=== PATIENT | female | born 1945 | race Caucasian/White ===

== ENCOUNTER 2017-01-13 10:45 | Emergency (ER) | payer OTHER, MEDICAID ==
[~2017-01-13] VITALS: Ht 165.1 cm; Wt 64.4 kg
[~2017-01-13 10:45] MED LIST: ATEN50TA PO; CYCL5TAB89 PO; LISI40TA PO; PREG75CA PO
[2017-01-13 11:58] LABS: Basophils # (auto) 0.1 uL; Basophils % (auto) 0.7 % (0.0-2.0); Eosinophils # (auto) 0.2 uL; Eosinophils % (auto) 2.2 % (0.0-7.0); Hematocrit 40.1 % (36.0-46.0); Hemoglobin 13.5 g/dL (12.2-16.2); Lymphocytes # (auto) 2.5 uL; Lymphocytes % (auto) 32.3 % (10.0-50.0); Mean Corpuscular Hemoglobin 28.4 pg (28.0-32.0); Mean Corpuscular Hgb Conc. 33.6 g/dL (32.0-36.0); Mean Corpuscular Volume 84.7 fL (80.0-100.0); Mean Platelet Volume 9.9 fL (7.4-10.4); Monocytes # (auto) 0.4 uL; Monocytes % (auto) 5.7 % (0.0-12.0); Neutrophils # (auto) 4.5 uL; Neutrophils % (auto) 59.1 % (37.0-80.0); Platelet Count (auto) 310 10^3/uL (140-450); White Blood Cell 7.6 10^3/uL (4.4-10.8)
[2017-01-13 12:44] LABS: Albumin 4.1 g/dL (3.4-5.0); BUN/Creatinine Ratio 17.8; Bilirubin, Total 0.6 mg/dL (0.2-1.0); Calcium 8.8 mg/dL (8.5-10.1); Potassium 3.7 mmol/L (3.5-5.1); Total Protein 7.7 g/dL (6.4-8.2)
[2017-01-13 13:43] VITALS: BP 119/69
== END 2017-01-13 13:46 | disposition home or self-care (01) ==
LOC: ER 10:45
DX: J20.9 Acute bronchitis, unspecified (principal); J45.909 Unspecified asthma, uncomplicated; K21.9 Gastro-esophageal reflux disease without esophagitis; I10 Essential (primary) hypertension; M79.7 Fibromyalgia; M19.90 Unspecified osteoarthritis, unspecified site
CPT/HCPCS: 36415; 71020; 80053; 85025

== ENCOUNTER 2017-02-19 10:10 | Emergency (ER) | payer OTHER, MEDICAID ==
[~2017-02-19] VITALS: Ht 167.6 cm; Wt 63.5 kg
[2017-02-19 10:15] VITALS: BP 138/87
== END 2017-02-19 11:14 | disposition home or self-care (01) ==
LOC: ER 10:12
DX: J20.9 Acute bronchitis, unspecified (principal); J45.909 Unspecified asthma, uncomplicated; K21.9 Gastro-esophageal reflux disease without esophagitis; E78.5 Hyperlipidemia, unspecified; I10 Essential (primary) hypertension; Z90.710 Acquired absence of both cervix and uterus

== ENCOUNTER 2017-05-17 08:55 | Emergency (ER) | payer OTHER, MEDICAID ==
[~2017-05-17] VITALS: Ht 165.1 cm; Wt 64.5 kg
[2017-05-17 09:14] VITALS: BP 159/84
== END 2017-05-17 09:54 | disposition home or self-care (01) ==
LOC: ER 08:55
DX: T78.40XA Allergy, unspecified, initial encounter (principal); J45.909 Unspecified asthma, uncomplicated; K21.9 Gastro-esophageal reflux disease without esophagitis; I10 Essential (primary) hypertension; Z90.710 Acquired absence of both cervix and uterus; Z91.041 Radiographic dye allergy status
CPT/HCPCS: 71020; 93005

== ENCOUNTER 2019-04-11 12:11 | Emergency (ER) | payer OTHER, MEDICAID ==
[~2019-04-11] VITALS: Ht 165.1 cm; Wt 65.3 kg
[2019-04-11] MEDS ORDERED: SODIUM CHLORIDE 0.9% 1,000 ML IVB ONE (12:36)
[2019-04-11] MEDS ORDERED: PANTOPRAZOLE 40 MG TAB PO ONE (12:45)
[2019-04-11 13:05] LABS: Basophils # (auto) 0.1 uL; Basophils % (auto) 0.8 % (0.0-2.0); Eosinophils # (auto) 0.1 uL; Eosinophils % (auto) 1.3 % (0.0-7.0); Hematocrit 38.9 % (36.0-46.0); Hemoglobin 13.1 g/dL (12.2-16.2); Lymphocytes # (auto) 2.2 uL; Lymphocytes % (auto) 31.7 % (10.0-50.0); Mean Corpuscular Hgb Conc. 33.7 g/dL (32.0-36.0); Monocytes # (auto) 0.5 uL; Monocytes % (auto) 6.7 % (0.0-12.0); Neutrophils # (auto) 4.1 uL; Neutrophils % (auto) 59.5 % (37.0-80.0); Nucleated Red Blood Cells % 0.1 %; Platelet Count (auto) 356 10^3/uL (140-450); Red Blood Cells 4.52 10^6/uL (4.0-5.20); Red Cell Distribution Width 13.4 % (11.8-14.3); White Blood Cell 6.8 10^3/uL (4.4-10.8)
[2019-04-11 13:27] LABS: Alanine Aminotransferase 35 U/L (13-56); Albumin 3.6 g/dL (3.4-5.0); Anion Gap 9 (5-15); Aspartate Aminotransferase 11 U/L (15-37); Blood Urea Nitrogen 17 mg/dL (7-18); Calcium 9.3 mg/dL (8.5-10.1); Carbon Dioxide 27 mmol/L (21-32); Chloride 108 mmol/L (98-107); GFR African American 70 mL/min; GFR Non-African American 58 mL/min; Glucose 131 mg/dL (74-106); Potassium 3.7 mmol/L (3.5-5.1); Sodium 144 mmol/L (136-145)
[2019-04-11 13:35] LABS: Alkaline Phosphatase 85 U/L (45-117); Bilirubin, Total 0.4 mg/dL (0.2-1.0); Lipase 3664 U/L (73-393); Total Protein 8.2 g/dL (6.4-8.2)
[2019-04-11 15:07] LABS: Urine Bacteria NONE SEEN /hpf (None Seen); Urine Blood Negative /uL (Negative); Urine Specific Gravity 1.026 (1.001-1.035); Urine WBC 4 /hpf (0 - 5)
[2019-04-11 15:20] VITALS: BP 139/66
== END 2019-04-11 15:51 | disposition home or self-care (01) ==
LOC: ER 12:13
DX: K29.70 Gastritis, unspecified, without bleeding (principal); K44.9 Diaphragmatic hernia without obstruction or gangrene; J45.909 Unspecified asthma, uncomplicated; K21.9 Gastro-esophageal reflux disease without esophagitis; E78.5 Hyperlipidemia, unspecified; I10 Essential (primary) hypertension; Z90.710 Acquired absence of both cervix and uterus; Z79.899 Other long term (current) drug therapy
CPT/HCPCS: 36415; 74176; 80053; 81001; 83690; 84484; 85025; 93005; 99284; J7030

== ENCOUNTER 2021-05-26 11:22 | Emergency (ER) | payer OTHER, MEDICARE ==
[~2021-05-26] VITALS: Ht 165.1 cm; Wt 64.9 kg
[~2021-05-26 11:22] MED LIST changes: -LISI40TA PO; +LISI40TA11 PO
[2021-05-26 13:34] VITALS: BP 141/78
[2021-05-26] MEDS ORDERED: ACETAMINOPHEN 325 MG TAB PO ONE (14:30)
== END 2021-05-26 15:29 | disposition home or self-care (01) ==
LOC: ER 11:22
DX: S46.911A Strain of unspecified muscle, fascia and tendon at shoulder and upper arm level, right arm, initial encounter (principal); S39.012A Strain of muscle, fascia and tendon of lower back, initial encounter; S29.012A Strain of muscle and tendon of back wall of thorax, initial encounter; I10 Essential (primary) hypertension; J45.909 Unspecified asthma, uncomplicated; K21.9 Gastro-esophageal reflux disease without esophagitis; E78.5 Hyperlipidemia, unspecified; G89.29 Other chronic pain; Z79.899 Other long term (current) drug therapy; Z88.8 Allergy status to other drugs, medicaments and biological substances; V43.52XA Car driver injured in collision with other type car in traffic accident, initial encounter; Y93.89 Activity, other specified; Y92.89 Other specified places as the place of occurrence of the external cause; Y99.8 Other external cause status
CPT/HCPCS: 72070; 72100; 73030

== ENCOUNTER 2024-09-25 10:17 | Emergency (ER) | payer OTHER, MEDICAID ==
[~2024-09-25] VITALS: Ht 165.1 cm; Wt 59.1 kg
[~2024-09-25 10:17] MED LIST changes: -LISI40TA11 PO; +LISI40TA16 PO
[2024-09-25 11:10] VITALS: BP 149/79; PULSE 118; RESP 20; TEMP 98.3; O2SAT 95
[2024-09-25 11:39] LABS: COVID19 ANTIGEN SOFIA FIA NEGATIVE (NEGATIVE); Rapid Influenza A Negative (Negative); Rapid Influenza B Negative (Negative)
[2024-09-25] MEDS ORDERED: ALBU108A5 IN (12:26)
[2024-09-25] MEDS ORDERED: PROM1SOL4 PO (12:26)
[2024-09-25] MEDS ORDERED: BENZ100C97 PO (12:26)
[2024-09-25] MEDS ORDERED: FEXO24TA10 PO (12:26)
--- NOTE | 2024-09-25 12:26 | ED.PDOC ---
SOB-HPI HPI Comments 79 year old F w/ no medical hx presents with URI symptoms x5 days Complains of a nonproductive cough, nasal congestion and a runny nose Denies fevers chills night sweats unintentional weight loss Denies persistent chest pain, shortness of breath, leg swelling Denies history of asthma nor any breathing conditions Denies history of pneumonia Denies recent international travel Chief Complaint: Flu like Time Seen by MD: 10:40 Primary Care Provider: [facility] Reviewed notes: Nurses Notes, Medications, Allergies Information Source: Patient Mode of Arrival: Ambulatory Past Medical History PAST MEDICAL HISTORY: Asthma, GERD, High Lipids, HTN Surgical History: Hysterectomy A&P TECHNICIAN History: No Pertinent A&P TECHNICIAN History Family History Family History: Unobtainable Social History Smoker: Non-Smoker Alcohol: Denies ETOH Use Drugs: Denies Drug Use Lives In: Home All Other Systems: Reviewed and Negative (Per HPI) Physical Exam General Appearance: No Apparent Distress, Normal HEENT: Normal ENT Inspection, Pharynx Normal, TMs Normal Neck: Full Range of Motion, Non-Tender, Normal, Normal Inspection Respiratory: Chest Non-Tender, Lungs Clear, No Accessory Muscle Use, No Respiratory Distress, Normal Breath Sounds Cardiovascular: No Edema, No JVD, No Murmur, No Gallop, Normal Peripheral Pulses, Regular Rate/Rhythm Breast Exam: Deferred Gastrointestinal: No Organomegaly, Non Tender, No Pulsatile Mass, Normal Bowel Sounds, Soft Genitalia: Deferred Pelvic: Deferred Rectal: Deferred Extremities: No calf tenderness, Normal capillary refill, Normal inspection, Normal range of motion, Non-tender, No pedal edema Musculoskeletal : Apperance: Normal Neurologic: Alert, No Motor Deficits, Normal Affect, Normal Mood, No Sensory Deficits Cerebellar Function: Normal Reflexes: Normal Skin: Dry, Normal Color, Warm Lymphatic: No Adenopathy Was a procedure done? Was a procedure done?: No Differential Dx Differential Diagnosis: Bronchitis, URI X-Ray, Labs, Meds, VS Vital Signs Date Time Temp Pulse Resp B/P (MAP) Pulse Ox O2 Delivery O2 Flow Rate FiO2 09/25/24 11:10 118 20 95 Room Air 09/25/24 11:10 98.3 118 20 149/79 (102) 95 98.3 09/25/24 10:28 98.3 118 20 149/79 (102) 95 Lab Test 1/27/25 10:35 Range/Units Influenza Type A Antigen Negative Negative Influenza Type B Antigen Negative Negative SARS-CoV-2 Antigen (Rapid) Negative NEGATIVE X-Ray, Labs, Meds, VS Comment On presentation, the patient is afebrile and has stable vital signs. The patient is overall well-appearing nontoxic on exam. On physical exam, respirations even and unlabored, clear to auscultation bilaterally. Oxygen stable on room air. Did not have any focal lung findings and therefore chest x-ray was not indicated during this exam Low suspicion of strep pharyngitis given physical exam findings and patient's presenting symptoms No signs of meningismus on exam Overall, the patient is well hydrated and nontoxic. Plan for symptomatic control for fever and pain as needed. The patient was able to tolerate p.o. intake in the ED. at this time, patient is safe for discharge home. The exam findings and plan discussed. We will discharge home with PCP follow up and strict return precautions. Discussed that cough can linger up to 6 weeks after viral URI Supportive care and return precautions discussed Counseled viral infection and explained that antibiotics would not be helpful in resolving the illness sooner. Recommended vitamin C, rest, handwashing, and symptomatic care. Expect 2-week course with possibly of cough lingering up to 6 weeks. Nonpharmacological remedies for fluids has been recommended as well Time of 1ST Reevaluation: 12:15 Reevaluation 1ST: Improved Patient Education/Counseling: Diagnosis, Treatment Family Education/Counseling: Diagnosis, Treatment Departure 1 Departure Time of Disposition: 12:24 Impression: Primary Impression: Viral syndrome Disposition: HOME / SELF CARE / HOMELESS Condition: Stable Additional Instructions: Discharge Note: Drink plenty of fluids. Follow up with your primary Dr. If your condition becomes worse call and follow up with your primary Dr. for instructions or return to the ER if needed. Thank you for visiting [facility]. e-Prescriptions Fexofenadine-Pseudoephedrine (ARSALAN-D 24 HOUR ALLERGY) 24 Hour Tab 1 TAB PO DAILY for 30 Days, #30 TAB 0 Refills Prov: MARTINEZ MEDRANO OPERATIONS/DISPATCH 09/25/24 Albuterol Sulfate (Albuterol Sulfate Hfa) 108 Mcg/Act Aer 108 MCG IN Q6HP PRN for 30 Days, #1 AER 0 Refills Prov: MARTINEZ MEDRANO OPERATIONS/DISPATCH 09/25/24 Promethazine-Dm (Promethazine Dm 6.25-15 mg/5Ml) 1 Bonnie Bonnie 5 ML PO TID for 10 Days, #150 ML 0 Refills Prov: MARTINEZ MEDRANO OPERATIONS/DISPATCH 09/25/24 Benzonatate (Benzonatate) 100 Mg Cap 1 CAP PO TID for 10 Days, #30 CAP 0 Refills Prov: MARTINEZ MEDRANO OPERATIONS/DISPATCH 09/25/24 Critical Care Note Critical Care Time?: No Stability Stability form required: No Heart Score Heart Score: Heart Score Response (Comments) Value History N/A 0 EKG N/A 0 Age N/A 0 Risk Factors N/A 0 Troponin N/A 0 Total 0 MARTINEZ MEDRANO NP Sep 25, 2024 12:26
== END 2024-09-25 12:34 | disposition home or self-care (01) ==
LOC: ER 10:17
DX: B34.9 Viral infection, unspecified (principal); J45.909 Unspecified asthma, uncomplicated; K21.9 Gastro-esophageal reflux disease without esophagitis; I10 Essential (primary) hypertension; R05.9 Cough, unspecified; Z90.710 Acquired absence of both cervix and uterus; Z20.822 Contact with and (suspected) exposure to COVID-19
CPT/HCPCS: 36415; 87426; 87804